=== PATIENT | female | born 1960 | race Caucasian/White ===

== ENCOUNTER 2019-03-04 12:45 | Emergency (ER) | payer OTHER ==
--- NOTE | 2019-03-04 13:52 | PDOC ---
History of Present Illness - General Chief Complaint: Cold Symptoms Stated Complaint: COUGH Time Seen by Provider: 03/04/19 13:14 - History of Present Illness Initial Comments: 03/04/19 13:47 Chief complaint: Cough and shortness of breath for 5 days. Symptoms worsening. HPI: Nonproductive cough, difficulty breathing, for 5 days. Symptoms seem to be worsening. No fever or chills. No chest pain. Review of systems: Significant only for mild nasal congestion. No sore throat or earache. No abdominal pain nausea or vomiting. Remainder of systems negative Past medical history: Elevated cholesterol, high blood pressure, non-insulin- dependent diabetes, thyroidectomy with thyroid replacement. No asthma or COPD. Medications as noted in admission record Social history: Former smoker, stopped smoking in 2011. No alcohol or other drugs. No significant disability. Family history reviewed and significant for diabetes Physical exam: Alert and oriented mildly obese no acute distress cooperative. Patient is not tachypneic or dyspneic Afebrile, vital signs normal HEENT significant only for mild nasal congestion without discharge Neck supple without bruit mass or nodes. Old scar from thyroidectomy. Chest exam reveals bilateral end expiratory wheezing, moderate. No rales or rhonchi. Respiratory rate is normal and oxygen saturation is adequate CV S1-S2 normal without murmur rub or gallop pulses full and symmetric no JVD or edema no bruits Abdomen nondistended, bowel sounds normal, soft without mass tenderness organomegaly Extremities no CCE Skin clear, no rash, adequate turgor and wet mucous membranes Neurological intact Impression: Patient with multiple comorbidities complains of persistent cough and subjective shortness of breath, with bilateral wheezing and no history of asthma or COPD. Most likely this is acute bronchitis, rule out pneumonia Plan: Chest x-ray and further medical management depending on results. Past History - Past Medical History Allergies/Adverse Reactions: Allergies Allergy/AdvReac Type Severity Reaction Status Date / Time No Known Allergies Allergy Verified 03/04/19 13:35 Home Medications: Ambulatory Orders Azithromycin [Zithromax 250mg Tablets -] 250 mg PO UTDICT #6 tab 03/04/19 Canagliflozin [Invokana] 300 mg PO DAILY 03/04/19 Gabapentin 300 mg PO TID 03/04/19 Levothyroxine [Synthroid -] 100 mcg PO DAILY 03/04/19 Lisinopril 10 mg PO DAILY 03/04/19 Metformin HCl [Glucophage] 1,000 mg PO BID 03/04/19 Nebivolol HCl [Bystolic] 10 mg PO DAILY 03/04/19 Promethazine/Dextromethorphan [Promethazine-Dm Syrup] 5 - 10 ml PO TID PRN #120 ml 03/04/19 Rosuvastatin Calcium 5 mg PO DAILY 03/04/19 Anemia: Yes Asthma: No Cancer: No Cardiac Disorders: Yes (angina) CVA: No COPD: Yes CHF: No Dementia: No Diabetes: Yes GI Disorders: No Disorders: No HTN: Yes Hypercholesterolemia: Yes Liver Disease: No Seizures: No Thyroid Disease: Yes - Surgical History Abdominal Surgery: No Appendectomy: No Cardiac Surgery: Yes (cardiac catherization) Cholecystectomy: No Lung Surgery: No Neurologic Surgery: No Orthopedic Surgery: No - Psycho Social/Smoking Cessation Hx Smoking History: Former smoker Have you smoked in the past 12 months: No Number of Cigarettes Smoked Daily: 20 If you are a former smoker, when did you quit?: 10 years ED Treatment Course - RADIOLOGY Radiology Studies Ordered: Category Date Time Status CHEST PA & LAT [RAD] Stat Radiology 03/04/19 13:15 Ordered Medical Decision Making - Medical Decision Making 03/04/19 13:58 Chest x-ray is clear Because of comorbidities, antibiotics prescribed. Cough suppressant prescribed as well. Instructed to rest, drink plenty fluids, and return to ER if there is fever or chest pain. Otherwise follow-up primary physician 2 to 3 days Discharge - Discharge Information Problems reviewed: Yes Clinical Impression/Diagnosis: Acute bronchitis Qualifiers: Bronchitis organism: unspecified organism Qualified Code(s): J20.9 - Acute bronchitis, unspecified Condition: Stable Disposition: HOME - Admission No - Additional Discharge Information Prescriptions: Azithromycin [Zithromax 250mg Tablets -] 250 mg PO UTDICT #6 tab Promethazine/Dextromethorphan [Promethazine-Dm Syrup] 5 - 10 ml PO TID PRN #120 ml PRN Reason: Cough - Follow up/Referral - Patient Discharge Instructions Patient Printed Discharge Instructions: DI for Acute Bronchitis Additional Instructions: Rest, drink plenty of fluids, take medications as directed If there is fever or chest pain, return to ER. Otherwise see primary physician for follow-up 2 to 3 days. - Post Discharge Activity
[2019-03-04 13:57] VITALS: BP 154/99; PULSE 87; TEMP 99; BMI 34.7
== END 2019-03-04 14:01 | disposition home or self-care (01) ==
LOC: FER 12:45
DX: J20.9 Acute bronchitis, unspecified (principal); Z87.891 Personal history of nicotine dependence; E78.00 Pure hypercholesterolemia, unspecified; D64.9 Anemia, unspecified; J44.9 Chronic obstructive pulmonary disease, unspecified; I10 Essential (primary) hypertension; E07.9 Disorder of thyroid, unspecified
CPT/HCPCS: 71046-TC-FY; 99281-25

== ENCOUNTER 2020-01-22 20:23 | Emergency (ER) | payer OTHER ==
[2020-01-22 20:53] VITALS: BP 161/97; PULSE 92; TEMP 98.7; BMI 35.6
[2020-01-22] MEDS ORDERED: AZITHROMYCIN 250 MG TABLET ONE (21:15)
[2020-01-22] MEDS ORDERED: AZITHROMYCIN 250 MG TABLET PO ONE (21:16)
== END 2020-01-22 21:22 | disposition home or self-care (01) ==
LOC: FER 20:23
DX: J20.9 Acute bronchitis, unspecified (principal)
CPT/HCPCS: 99283-25; C9803; U0003

== ENCOUNTER 2021-09-01 11:26 | Emergency (ER) | payer OTHER ==
[2021-09-01 11:38] VITALS: BMI 35.6
[2021-09-01] MEDS ORDERED: ACETAMINOPHEN 500 MG TABLET (FP) PO ONE (11:46)
[2021-09-01] MEDS ORDERED: ALBUTEROL SO4 2.5/IPRATROPIUM 0.5 INH SOL 3 ML VIAL.NEB. NEB ONE ×3 (11:55→14:26)
[2021-09-01] MEDS ORDERED: ACETAMINOPHEN 500 MG TABLET (FP) ONE (12:01)
[2021-09-01] MEDS ORDERED: ALBUTEROL SO4 0.083% IH SOL 2.5 MG/3 ML VIAL.NEB. NEB ONE (13:10)
[2021-09-01] MEDS ORDERED: predniSONE 20 MG TABLET (UD) PO ONE (13:10)
[2021-09-01] MEDS ORDERED: predniSONE 20 MG TABLET (UD) ONE (14:26)
[2021-09-01 14:47] VITALS: BP 108/62; PULSE 100; TEMP 98.8
== END 2021-09-01 15:27 | disposition home or self-care (01) ==
LOC: FER 11:26
PROC: 3E0F7GC Introduction of Other Therapeutic Substance into Respiratory Tract, Via Natural or Artificial Opening (ICD-10-PCS; principal; 2021-09-01)
PROC: 3E0F7GC Introduction of Other Therapeutic Substance into Respiratory Tract, Via Natural or Artificial Opening (ICD-10-PCS; 2021-09-01)
DX: U07.1 COVID-19 (principal); J44.1 Chronic obstructive pulmonary disease with (acute) exacerbation
CPT/HCPCS: 0241U-QW; 71046-TC-FY; 94640; 99284-25